=== PATIENT | female | born 1960 | race Caucasian/White ===

== ENCOUNTER 2016-05-05 05:48 | Day surgery (SDC) | payer BC ==
[2016-05-05] MEDS ORDERED: Lactated Ringers 1,000 ML IV SCH (06:30)
[2016-05-05] MEDS ORDERED: Bupivacaine 0.5% 50 ML MDV ONE (06:47)
[2016-05-05] MEDS ORDERED: Midazolam 1 MG/ML 2 ML SDV ONE (07:19)
[2016-05-05] MEDS ORDERED: Propofol 200 MG/20 ML SDV ONE ×2 (07:19→08:00)
[2016-05-05] MEDS ORDERED: fentaNYL 100 MCG/2 ML SDV ONE (07:19)
[2016-05-05] MEDS ORDERED: Lidocaine 0.5% 50 ML SDV ONE (07:21)
[2016-05-05] MEDS ORDERED: Povidone-Iodine 10% Soln 118.25 ML Bottle ONE (07:53)
--- NOTE | 2016-05-05 08:57 | OR ---
DATE OF PROCEDURE: 05/05/2016 PREOPERATIVE DIAGNOSIS: Left thumb trigger thumb. POSTOPERATIVE DIAGNOSIS: Left thumb trigger thumb. PROCEDURE: Left thumb trigger thumb release. GANG BORE OPERATOR: Katerine Tay NP. FLUIDS: Lactated Ringer solution. ESTIMATED BLOOD LOSS: Zero. COMPLICATIONS: None. SPECIMEN: None. DISPOSITION: Stable to PACU. ANESTHESIA: [place] block with conscious sedation. INDICATION FOR THE PROCEDURE: The patient was seen preoperatively within the clinic. She had been suffering with the trigger thumb, which was limiting her ability. She works as a teacher. Risks and benefits of the procedure were explained to the patient. An informed consent was obtained. DETAILS OF PROCEDURE: The patient was seen preoperatively by myself and the anesthesia staff in the preoperative holding area where the operative site was marked. She was brought to the operative suite by the anesthesia staff where a justo block was administered as well as conscious sedation. The left upper extremity was then prepped and draped in a sterile manner. Time-out was called identifying the correct patient, the correct procedure, the correct site, and antibiotics had begun with an appropriate period of time. I did make sure that adequate sedation was present with Adson forceps. I then made an incision over the A1 rolando and then carried it down subcutaneously. The tendon was very thickened proximal to the rolando. The rolando was then longitudinally divided. Part of the rolando was then removed with Adson's and the #15 blade. After this had been accomplished, we then copiously irrigated with saline and then closed with 3-0 nylon sutures in a horizontal mattress manner followed by sterile dressing. The patient had her justo block let down and then was taken to the PACU in stable condition. Marcos Steel DO /[id number]
[2016-05-05 09:19] VITALS: BP 139/68
== END 2016-05-05 09:29 | disposition home or self-care (01) ==
LOC: JP.SDS 05:48
PROVIDERS: ATTEND Orthopaedic Surgery
DX: M65.312 Trigger thumb, left thumb (principal); K21.9 Gastro-esophageal reflux disease without esophagitis; Z88.1 Allergy status to other antibiotic agents; Z88.8 Allergy status to other drugs, medicaments and biological substances; Z79.899 Other long term (current) drug therapy; F41.8 Other specified anxiety disorders; Z90.49 Acquired absence of other specified parts of digestive tract; Z98.51 Tubal ligation status; Z98.890 Other specified postprocedural states
CPT/HCPCS: 26055; J2250; J2704; J3010; J7120

== ENCOUNTER 2021-03-14 08:22 | Emergency (ER) | payer BC ==
[2021-03-14] MEDS ORDERED: Bisacodyl 10 MG Supp RECTAL ONE (09:38)
[2021-03-14] MEDS ORDERED: Ondansetron 4 MG/2 ML SDV IVPUSH ONE (09:39)
[2021-03-14] MEDS ORDERED: Sodium Chloride 0.9% 1,000 ML IV SCH ×2 (09:45→10:45)
[2021-03-14] MEDS ORDERED: Bisacodyl 5 MG Tab PO ONE (12:03)
[2021-03-14 12:29] VITALS: BP 123/84; PULSE 92
== END 2021-03-14 12:45 | disposition home or self-care (01) ==
LOC: JP.ED 08:22
DX: K59.00 Constipation, unspecified (principal); E86.0 Dehydration; K21.9 Gastro-esophageal reflux disease without esophagitis; Z79.899 Other long term (current) drug therapy; Z88.5 Allergy status to narcotic agent; Z88.1 Allergy status to other antibiotic agents; Z85.09 Personal history of malignant neoplasm of other digestive organs
CPT/HCPCS: 36415; 71045; 80053; 81001; 83735; 85025; 96374; 99284; A9270; J1642; J2405; J7030